=== PATIENT | male | born 1935 | race Caucasian/White ===

== ENCOUNTER → 2017-05-16 | Outpatient (CLI) | payer OTHER ==
[~2017-05-16] MED LIST: ASPIRIN325 MG PO; CPAP INH; PRESERVISION A1 EAC1 PO; PRILOSEC20 MG PO; SIMVASTATIN40 MG PO; VITAMIN D400 UNIT PO
--- NOTE | ~2017-05-16 | NDGEN ---
PATIENT'S NAME: DOMO HOWE [facility] AGE: 81 Y [address] ROOM: [place], [place] [id number] LOCATION: [facility] ADMIT DATE: 05/16/2017 Neurodiagnostics DISCHARGE DATE: FAMILY PHYSICIAN: ERNA BRAVO MD ATTENDING PHYSICIAN: ERNA BRAVO DATE OF PROCEDURE: 05/16/2017 PROCEDURE PERFORMED: Nerve conduction EMG of the bilateral upper extremities. INDICATIONS: This is a 81-year-old male patient who has very typical symptoms of carpal tunnel syndrome, mostly in his right hand from the wrist into his hand, particularly into the median distribution. He has subtle symptoms of pain into his right neck and shoulder, but nothing in a radicular pattern into the arm. He also has possible carpal tunnel syndrome-like symptoms in the left hand as well. Motor and sensory nerve conduction studies were performed in the bilateral upper extremities. The bilateral median nerves showed slowing of the motor onset latencies, worse in the right wrist with well preserved nerve conduction velocities and amplitudes; however, there was severe slowing of the sensory nerve conduction studies at the right median sensory nerve with very prolonged peak onset latencies and slowing of the right median sensory nerve conduction to demyelinating range of 29 m/sec. In the left median nerve, the slowing was less with the peak onset latencies a bit faster and the nerve conduction velocities fairly well preserved. The ulnar motor and sensory nerve studies were completely within normal limits. A needle was placed into the abductor pollicis brevis muscle bilaterally. There was abnormal spontaneous electrical activity seen in the right abductor pollicis brevis muscle at the thenar eminence. It showed +3 fibrillation potentials and positive sharp waves, as well as decreased recruitment of motor unit action potentials. The left abductor pollicis brevis muscle did not reveal these abnormal spontaneous electrical activities and the motor unit action potentials were well preserved with normal frequencies. The testing of the muscles elsewhere in the right upper extremity to rule out any evidence of a radiculopathy were all within normal limits, showing no evidence of any fibrillation potentials or positive sharp waves, and there was full recruitment of motor unit action potentials seen in the deltoids, biceps, triceps muscles, and forearm muscles. Therefore, PATIENT'S NAME: DOMO HOWE [facility] AGE: 81 Y [address] 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 The median neuropathy at the left wrist is present but probably only approaching moderate in intensity at this time, probably would benefit from carpal tunnel release surgery in the short term in the right upper extremity, but possibly even in the right wrist, but probably in time in the left wrist as well. No evidence to support a cervical radiculopathy of the right upper extremity on today's testing. MD ISAI HILL/[email or web address] /[id number] CC: Erna Bravo MD dtt: 05/30/17 1642 , GREG DELACRUZ dtd: 05/16/17 1755
== END | disposition disaster alternative care site (69) ==
LOC: GNEU 05-15 15:00
DX: R20.2 Paresthesia of skin (principal); G62.9 Polyneuropathy, unspecified